=== PATIENT | male | born 1965 | race Two or more races ===

== ENCOUNTER 2022-07-12 16:00 | Outpatient (CLI) | payer OTHER | END 2022-07-12 16:05 | disposition home or self-care (01) | LOC: PPH VACUNA 16:00 | PROVIDERS: ATTEND Emergency Medicine Pediatric Emergency Medicine | DX: Z23 Encounter for immunization (principal) ==

== ENCOUNTER → 2025-09-27 | Emergency (ER) | payer OTHER ==
[~2025-09-27] VITALS: Ht 167.6 cm; Wt 70.3 kg
[~2025-09-27] MED LIST: 0.9 % SODIUM CHLORIDE 1,000 ML IV STA; CIPRO500 MG PO; ELIQUIS5 MG; FAMOTIDINE/PF 20 MG/2 ML VIAL IV STA; LACTOBACILLUS ACIDOPHILUS 1 CAP CAP PO STA; METRONIDAZOLE500 MG PO; MORPHINE SULFATE 4 MG/ML CARTRIDGE IV SCH; ONDANSETRON HCL 2 MG/ML VIAL IV STA; PIPERACILLIN/TAZOBACTAM SODIUM 3.375 GM in DEXTROSE 5 % IN WATER 100 ML IV SCH
[2025-09-27 08:44] LABS: BASO % 0.3 % (0.1-1.2); EOS # 0.06 (0.04-0.54); EOS % 0.8 % (0.7-7.0); LYMPH # 0.38 (1.18-3.74); LYMPH % 4.9 % (19.3-53.1); MEAN PLATELET VOLUME 10.00 fl (9.4-12.4); MONO # 0.36 (0.24-0.82); MONO % 4.6 % (4.7-12.5); NEUT # 6.97 (1.56-6.13); NEUT % 89.1 % (34.0-71.1); RED CELL DISTRIBUTION WIDTH 12.6 % (11.6-14.4)
[2025-09-27 09:11] LABS: ERYTHROCYTE SEDIMENTATION RATE 15 mm/hr (0-20)
[2025-09-27 09:17] LABS: INR 1.02
[2025-09-27 09:24] LABS: ALT/SGPT 22.0 U/L (12-78); AST/SGOT 18.0 U/L (15-37); BILIRUBIN TOTAL 1.7 mg/dL (0.3-1.2); BUN CREA RATIO 18.0 (7.0-25.0); CREATININE SERUM 0.99 mg/dL (0.70-1.30); GFR 77.37; GLOBULINA 3.8 G/DL (2.4-3.5); GLUCOSE FASTING 128.0 mg/dL (65-100); OSMOLALITY SERUM 283.0 MOSM/KG (275-295)
[2025-09-27 12:37] LABS: URINE APPEARANCE Clear; URINE BILIRRUBIN Negative (NEGATIVE); URINE BLOOD Negative; URINE COLOR Yellow; URINE GLUCOSE Negative (NEGATIVE); URINE KETONE Trace (NEGATIVE); URINE LEUKOCYTE Negative; URINE NITRATE Negative; URINE PROTEIN Negative (NEGATIVE); URINE UROBILINOGEN 1.0 E.U./dl
[2025-09-27 12:41] LABS: URINE BACTERIA 7.1 uL (0.0-1933); URINE EPITHELIAL CELLS 1.5 uL (0.0-38.8); URINE RBC 3.6 uL (0.0-20.8)
[2025-09-27 13:18] LABS: URINE CAST 0.00 uL (0.0-1.40); URINE WBC 0.6 uL (0.0-23.2)
== END | disposition home or self-care (01) ==
LOC: ER 05:58
PROVIDERS: Physician Assistant Medical
DX: K80.10 Calculus of gallbladder with chronic cholecystitis without obstruction (principal); I10 Essential (primary) hypertension; I25.2 Old myocardial infarction

== ENCOUNTER → 2025-10-04 | Emergency (ER) | payer OTHER ==
[~2025-10-04] VITALS: Ht 167.6 cm; Wt 68.0 kg
[~2025-10-04] MED LIST changes: -0.9 % SODIUM CHLORIDE 1,000 ML IV STA; -FAMOTIDINE/PF 20 MG/2 ML VIAL IV STA; -LACTOBACILLUS ACIDOPHILUS 1 CAP CAP PO STA; -MORPHINE SULFATE 4 MG/ML CARTRIDGE IV SCH; +MORPHINE SULFATE 4 MG/ML VIAL IV STA; -ONDANSETRON HCL 2 MG/ML VIAL IV STA; -PIPERACILLIN/TAZOBACTAM SODIUM 3.375 GM in DEXTROSE 5 % IN WATER 100 ML IV SCH
== END | disposition left against medical advice (07) ==
LOC: ER 05:48
DX: R10.11 Right upper quadrant pain (principal); R10.9 Unspecified abdominal pain